=== PATIENT | female | born 1970 | race Caucasian/White ===

== ENCOUNTER → 2024-12-17 | Emergency (ER) | payer MEDICAID ==
[~2024-12-17] VITALS: Ht 170.2 cm; Wt 79.0 kg
[2024-12-17 10:24] VITALS: BP 154/103; PULSE 98; RESP 18; TEMP 36.9; O2SAT 98
== END ==
LOC: ER 10:20
DX: M54.2 Cervicalgia (principal); E11.9 Type 2 diabetes mellitus without complications; M79.602 Pain in left arm; Z53.21 Procedure and treatment not carried out due to patient leaving prior to being seen by health care provider